=== PATIENT | male | born 1950 | race Caucasian/White ===

== ENCOUNTER → 2016-09-25 | Outpatient (CLI) | payer OTHER ==
--- NOTE | 2016-09-25 11:36 | DX ---
PA and Lateral Chest Clinical Indications: Cough for 3 weeks in a 66-year-old male. Comparison: July 03, 2011. Findings: The lungs are clear. There is hyperexpansion seen with flattening of the hemidiaphragms no enma. The heart size and pulmonary vascularity are normal. Pleural surfaces and bony thorax are negati ve for acute abnormality. Spinal degenerative changes are noted and there is a minimal scoliotic curv ature. There has been no significant change from the prior study. Impression: Hyperexpansion may be associated with airways disease with no superimposed acute pneumoni a identified.
== END ==
LOC: BMCIMAGING 10:56
PROVIDERS: ATTEND Family Medicine
DX: J98.4 Other disorders of lung (principal); R05 Cough

== ENCOUNTER 2016-10-19 17:06 | Emergency (ER) | payer OTHER ==
--- NOTE | 2016-10-19 17:08 | EDPHY ---
H & P Time Seen by Provider: 10/19/16 17:08 HPI/ROS: CHIEF COMPLAINT: Transient short term memory loss HISTORY OF PRESENT ILLNESS: The patient presents to the ED after an episode of transient mild amnesia. 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 The patient did not have any symptoms of an expressive aphasia. The patient denies any focal numbness or weakness. He has no complaints of headache. He denies recent fall or head injury. He denies history of cervical manipulation. The patient reports that he has a undetectable calcium score. The patient also reports he has had annual carotid ultrasounds which demonstrate no evidence of significant stenosis. REVIEW OF SYSTEMS: A comprehensive 10 point review of systems is otherwise negative aside from elements mentioned in the history of present illness. Source: Patient Exam Limitations: No limitations - Personal History Current Tetanus/Diphtheria Vaccine: Yes - Medical/Surgical History PMH: Past medical history: Hypertension, hyperlipidemia - Family History Significant Family History: No pertinent family hx - Social History Smoking Status: Never smoked - Physical Exam Exam: General Appearance: Alert, no distress Eyes: Pupils equal and round no pallor or injection ENT, Mouth: Mucous membranes moist Respiratory: There are no retractions, lungs are clear to auscultation Cardiovascular: Regular rate and rhythm Gastrointestinal: Abdomen is soft and nontender, no masses, bowel sounds normal Neurological: A&O, normal motor function, normal sensory exam, normal cranial nerves Skin: Warm and dry, no rashes Musculoskeletal: Neck is supple nontender Extremities: symmetrical, full range of motion Psychiatric: Patient is oriented X 3, there is no agitation Constitutional: Initial Vital Signs Temperature (C) 36.6 C 10/19/16 17:07 Heart Rate 75 10/19/16 17:07 Respiratory Rate 16 10/19/16 17:07 Blood Pressure 162/106 H 10/19/16 17:07 O2 Sat (%) 97 10/19/16 17:07 O2 Delivery Mode Room Air Allergies/Adverse Reactions: No Known Allergies Allergy (Unverified 10/19/16 17:12) Home Medications: Medication Instructions Recorded Another Bp Med (Cant Remember Name) 10/19/16 Aspirin [Aspirin 81mg (*)] 81 mg PO DAILY 10/19/16 Losartan Potassium [Cozaar 50 mg 50 mg PO 10/19/16 (*)] Statin Drug 10/19/16 Medical Decision Making - Diagnostics EKG Interpretation: EKG: Complete interpretation has been separately recorded in the [facility] archive. Summary impression: Sinus rhythm ED Course/Re-evaluation: The patient presents to the ED after an episode of an acute mild amnesia which appears to be most consistent with TGA as opposed to TIA. The patient has no evidence of an arrhythmia noted on his EKG today. His vital signs are stable. The patient's laboratory studies are unremarkable. At this point time I do not feel that further workup is indicated as he has known normal carotid anatomy, no significant hypertension or arrhythmia. I do feel it is reasonable to have the patient return to the ED should he developed symptoms of an aphasia, numbness, weakness, headache or other concerns. The patient can follow up with his primary care provider. Differential Diagnosis: Differential diagnosis considered includes stroke, TIA, transient global amnesia , metabolic abnormality, hypotension, hypertensive emergency - Data Points Laboratory Results: Laboratory Results 10/19/16 17:41 10/19/16 17:41 10/19/16 10/19/16 17:41 17:41 WBC 6.94 10^3/uL 10^3/uL (3.80-9.50) RBC 5.30 10^6/uL 10^6/uL (4.40-6.38) Hgb 16.7 g/dL g/dL (13.7-17.5) Hct 48.8 % % (40.0-51.0) MCV 92.1 fL fL (81.5-99.8) MCH 31.5 pg pg (27.9-34.1) MCHC 34.2 g/dL g/dL (32.4-36.7) RDW 12.7 % % (11.5-15.2) Plt Count 230 10^3/uL 10^3/uL (150-400) MPV 9.8 fL fL (8.7-11.7) Neut % (Auto) 61.1 % % (39.3-74.2) Lymph % (Auto) 25.8 % % (15.0-45.0) [place] % (Auto) 9.7 % % (4.5-13.0) Eos % (Auto) 1.7 % % (0.6-7.6) Baso % (Auto) 1.3 % % (0.3-1.7) Nucleat RBC Rel Count 0.0 % % (0.0-0.2) Absolute Neuts (auto) 4.24 10^3/uL 10^3/uL (1.70-6.50) Absolute Lymphs (auto) 1.79 10^3/uL 10^3/uL (1.00-3.00) Absolute Monos (auto) 0.67 10^3/uL 10^3/uL (0.30-0.80) Absolute Eos (auto) 0.12 10^3/uL 10^3/uL (0.03-0.40) Absolute Basos (auto) 0.09 10^3/uL 10^3/uL (0.02-0.10) Absolute Nucleated RBC 0.00 10^3/uL 10^3/uL (0-0.01) Immature Gran % 0.4 % % (0.0-1.1) Immature Gran # 0.03 10^3/uL 10^3/uL (0.00-0.10) Sodium 141 mEq/L mEq/L (134-144) Potassium 3.9 mEq/L mEq/L (3.5-5.2) Chloride 104 mEq/L mEq/L (97-110) Carbon Dioxide 23 mEq/l mEq/l (22-31) Anion Gap 14 mEq/L mEq/L (8-16) BUN 12 mg/dL mg/dL (7-23) Creatinine 0.8 mg/dL mg/dL (0.7-1.3) Estimated GFR > 60 Glucose 90 mg/dL mg/dL (70-100) Calcium 9.9 mg/dL mg/dL (8.5-10.4) Departure - Departure Disposition: Home, Routine, Self-Care Clinical Impression: Transient confusion Condition: Good Instructions: Transient Ischemic Attack (ED) Additional Instructions: 1. Please return to the emergency department for any numbness, weakness, difficulty speaking, difficulty walking, severe headache, new neurologic symptoms or other concerns. 2. Please schedule a follow-up appointment with your primary care provider for a recheck within the week. 3. Please begin taking an 81 mg a day aspirin until seen by your primary care provider. 4. Your primary care provider may want you to see a neurologist for any recurrent symptoms. There is a neurologist at the [facility] who would be happy to see you in follow-up named Dr Ye. Referrals: Vinnie Venegas MD [Primary Care Provider] - As per Instructions
[2016-10-19 17:13] VITALS: PULSE 75; TEMP 97.9
--- NOTE | 2016-10-19 17:45 | CPEKG ---
Heart Rate: 68 RR Interval: 882 P-R Interval: 160 QRSD Interval: 106 QT Interval: 404 QTC Interval: 430 P [place]: 37 QRS [place]: -38 T Wave [place]: 19 EKG Severity - BORDERLINE ECG - EKG Impression: SINUS RHYTHM EKG Impression: BORDERLINE IVCD WITH LAD Electronically Signed By: Evaristo Lam 19-Oct-2016 21:08:30
[2016-10-19 18:00] LABS: % IMMATURE GRANULYOCYTES 0.4 % (0.0-1.1); ABSOLUTE IMMATURE GRANULOCYTES 0.03 10^3/uL (0.00-0.10); ADD DIFF? NO; ADD MORPH? NO; ADD SCAN? NO; ATYPICAL LYMPHOCYTE FLAG 10 (0-99); FRAGMENT RBC FLAG 0 (0-99); HEMATOCRIT 48.8 % (40.0-51.0); HEMOGLOBIN 16.7 g/dL (13.7-17.5); LEFT SHIFT FLG 0 (0-99); LIPEMIA HEMOLYSIS FLAG 90 (0-99); MEAN CELL HEMOGLOBIN 31.5 pg (27.9-34.1); MEAN CELL HEMOGLOBIN CONCENTR. 34.2 g/dL (32.4-36.7); MEAN CELL VOLUME 92.1 fL (81.5-99.8); MEAN PLATELET VOLUME 9.8 fL (8.7-11.7); PLATELET CLUMPS FLAG 10 (0-99); PLATELET COUNT 230 10^3/uL (150-400); RED CELL DISTRIBUTION WIDTH 12.7 % (11.5-15.2)
[2016-10-19 18:15] LABS: ANION GAP 14 mEq/L (8-16); CALCIUM 9.9 mg/dL (8.5-10.4); CARBON DIOXIDE 23 mEq/l (22-31); CHLORIDE 104 mEq/L (97-110); CREATININE 0.8 mg/dL (0.7-1.3); GLOMERULAR FILTRATION RATE > 60; GLUCOSE 90 mg/dL (70-100); POTASSIUM 3.9 mEq/L (3.5-5.2); SODIUM 141 mEq/L (134-144)
[2016-10-19 18:43] VITALS: BP 140/97; RESP 18; O2SAT 94
== END 2016-10-19 18:42 | disposition home or self-care (01) ==
DX: R41.0 Disorientation, unspecified (principal); I10 Essential (primary) hypertension; Z79.82 Long term (current) use of aspirin

== ENCOUNTER → 2016-10-23 | Outpatient (CLI) | payer OTHER ==
[~2016-10-23] MED LIST: GADOBUTROL 10 ML VIAL IVP ONE
== END ==
LOC: FIMAGING 15:22
PROVIDERS: ATTEND Internal Medicine
DX: R90.82 White matter disease, unspecified (principal); R94.02 Abnormal brain scan
CPT/HCPCS: 70544; 70549; 70553; A9585

== ENCOUNTER → 2016-11-20 | Outpatient (CLI) | payer OTHER | LOC: FIMAGING 13:35 | PROVIDERS: ATTEND Psychiatry & Neurology Neurology | DX: R90.89 Other abnormal findings on diagnostic imaging of central nervous system (principal) | CPT/HCPCS: 70553; A9585 ==